=== PATIENT | female | born 1990 | race Two or more races ===

== ENCOUNTER 2016-09-23 07:52 | Inpatient (IN) | payer MEDICAID ==
[2016-04-16 15:14] VITALS: BMI 36.1
[2016-09-23] MEDS ORDERED: SODIUM CHLORIDE 0.9% 3 ML FLUSH FLUSH PRN ×2 (08:30→09:10)
[2016-09-23] MEDS ORDERED: REGULAR INSULIN 100 UNITS/ML - 3 ML VIAL SQ SCH ×2 (09:00→17:00)
[2016-09-23] MEDS ORDERED: NPH INSULIN 100 UNITS/ML PEN SQ SCH ×2 (09:00→17:00)
[2016-09-23] MEDS: REGULAR INSULIN 100 UNITS/ML - 3 ML VIAL SQ SCH (09:06)
[2016-09-23] MEDS ORDERED: Aluminum;Magnesium;Simethicone 30 ML UDC PO PRN (09:08)
[2016-09-23] MEDS ORDERED: ONDANSETRON HCL 4 MG/2 ML VIAL IV PRN (09:10)
[2016-09-23 09:12] LABS: AUTOMATED BASOPHIL 0.3 % (0-2); AUTOMATED EOSINOPHIL 0.4 % (0-5); AUTOMATED LYMPH 29.5 % (17-44); AUTOMATED MONOCYTE 6.6 % (3-10); AUTOMATED NEUTROPHIL 63.2 % (45-76); MPV 7.2 fL (7.4-10.4)
[2016-09-23 09:24] LABS: BLOOD UREA NITROGEN 9 MG/DL (7-17); CALC CORRECTED 9.4 MG/DL (8.4-10.2); CALCIUM 8.7 MG/DL (8.4-10.2); CALCULATED OSMOLALITY 268 MOs/Kg (270-290); CHLORIDE 102 mEq/L (98-107); GLUCOSE 299 MG/DL (70-99); SODIUM LEVEL 134 mEq/L (137-146); TOTAL PROTEIN 6.5 G/DL (6.3-8.2)
--- NOTE | 2016-09-23 09:57 | HISTPHYS ---
- HISTORY OF PRESENT ILLNESS Age: 26 Estimated Due Date: 02/11/17 Gestational Age: 17 : 5 Para: 3 Patient Presents to:: Labor & Delivery Presents for:: Diabetes (Poorly controlled diabetes, now admitted for patterning ) Current : Diabetes, GBS + - REVIEW OF SYSTEMS Reports/Denies: Denies: Complaints, Vaginal Bleeding, GI Comlaints Pain: Reports: None - ALLERGIES Allergies Allergy/AdvReac Type Severity Reaction Status Date / Time amoxicillin Allergy Itching Verified 04/16/16 15:15 metronidazole [From Flagyl] Allergy Difficulty Verified 04/16/16 15:15 Breathing Penicillins Allergy Hives* Verified 04/16/16 15:15 - CURRENT MEDICATIONS Home Medication List Insulin Aspart [Novolog] 5 units SQ AC 09/23/16 [History] Sertraline HCl [Zoloft] 50 mg PO DAILY 09/23/16 [History] - PAST MEDICAL HISTORY Reports: Diabetes, Depression (Bipolar) - PAST SURGICAL HISTORY Reports: Section - SOCIAL HISTORY Travel Outside of [place] in the Last 3 Months?: No Smoking Status: Never smoker Social History: Denies: Alcohol Use Marital Status: Single (Never ) - GENITOURINARY HISTORY Gynecologic History: Reports: None HX : 5 Para: 3 Live Deliveries (# of pregnancies resulting in a live ): 3 Term: 1 Pre-term: 2 Spontaneous Abortions: 1 Hx Multiple Births: No - PHYSICAL EXAM Vital Signs:: Temperature: 98.1 F (09/23/16 08:20) HR: 88 (09/23/16 08:20) RR: 20 (09/23/16 08:20) BP: 120/70 (09/23/16 08:20) Pulse Ox: () GENERAL: Alert, Oriented, No Acute Distress ABDOMEN: Gravid, Non-Distended, Non-Tender, Soft MUSCULOSKELETAL: Normal. negative: Atrophy EXTERMITIES: Moves All Extremeties. negative: Pain/Tenderness Heart Rate: 150 Moderate Variability Contractions: Absent Membranes: Intact Laboratory Last Values WBC 5.9 xk/uL (3.8-10.8) 09/23/16 09:05 RBC 3.93 xM/uL (4.20-5.40) L 09/23/16 09:05 Hgb 11.4 g/dL (12.0-16.0) L 09/23/16 09:05 Hct 33.0 % (36-47) L 09/23/16 09:05 MCV 84 fL (81-99) 09/23/16 09:05 MCH 29.0 pg (27-32) 09/23/16 09:05 MCHC 34.5 g/dl (33-36) 09/23/16 09:05 RDW 13.0 % (11.5-14.5) 09/23/16 09:05 Plt Count 196 xk/uL (130-400) 09/23/16 09:05 MPV 7.2 fL (7.4-10.4) L 09/23/16 09:05 Neut % (Auto) 63.2 % (45-76) 09/23/16 09:05 Lymph % (Auto) 29.5 % (17-44) 09/23/16 09:05 Smith % (Auto) 6.6 % (3-10) 09/23/16 09:05 Eos % (Auto) 0.4 % (0-5) 09/23/16 09:05 Baso % (Auto) 0.3 % (0-2) 09/23/16 09:05 Absolute Neuts (auto) 3.72 xk/uL (1.7-8.2) 09/23/16 09:05 Absolute Lymphs (auto) 1.71 xk/uL (0.65-4.75) 09/23/16 09:05 Sodium 134 mEq/L (137-146) L 09/23/16 09:05 Potassium 4.0 mEq/L (3.5-5.1) 09/23/16 09:05 Chloride 102 mEq/L (98-107) 09/23/16 09:05 Carbon Dioxide 23 mMOL/L (22-33) 09/23/16 09:05 Anion Gap 13 mEq/L (8-16) 09/23/16 09:05 BUN 9 MG/DL (7-17) 09/23/16 09:05 Creatinine 0.50 MG/DL (0.52-1.04) L 09/23/16 09:05 Estimated GFR (MDRD) > 60 mL/min (>=60) 09/23/16 09:05 Glucose 299 MG/DL (70-99) H 09/23/16 09:05 POC Capillary Glucose 312 MG/DL (70-99) H 09/23/16 08:12 Calculated Osmolality 268 MOs/Kg (270-290) L 09/23/16 09:05 Calcium 8.7 MG/DL (8.4-10.2) 09/23/16 09:05 Corrected Calcium 9.4 MG/DL (8.4-10.2) 09/23/16 09:05 Total Bilirubin 0.6 MG/DL (0.2-1.3) 09/23/16 09:05 AST 21 IU/L (14-36) 09/23/16 09:05 ALT 44 IU/L (9-52) 09/23/16 09:05 Alkaline Phosphatase 60 IU/L (38-126) 09/23/16 09:05 Total Protein 6.5 G/DL (6.3-8.2) 09/23/16 09:05 Albumin 3.3 G/DL (3.5-5.0) L 09/23/16 09:05 - ASSESSMENT (ACTIVE PROBLEMS) (1) Poorly controlled diabetes mellitus Acute E11.65 - TYPE 2 DIABETES MELLITUS WITH HYPERGLYCEMIA Present on Admission: Yes Comment/Plan: No evidence of DKA. Management plan discussed with Dr Gupta. - PLAN Admit, Monitor Blood Sugars, Monitor Labs
[2016-09-23] MEDS ORDERED: SODIUM CHLORIDE 0.9% 3 ML FLUSH FLUSH SCH (18:00)
[2016-09-23 18:37] LABS: RBC/URINE 0-2 (0-5); WBC/URINE 0-2 (0-5)
[2016-09-23 18:41] LABS: LEUKOCYTES/URINE NEG (NEGATIVE); URINE OCCULT BLOOD NEG (NEG/TRACE)
[2016-09-23 18:42] LABS: NITRITE/URINE NEG (NEGATIVE)
[2016-09-23] MEDS ORDERED: PNEUMOCOCCAL 0.5 ML VIAL IM ONE (19:00)
[2016-09-23] MEDS ORDERED: Vaccine Screening Complete SCH (19:00)
[2016-09-23] MEDS: SODIUM CHLORIDE 0.9% 3 ML FLUSH FLUSH SCH (19:18)
[2016-09-23] MEDS: DIPHENHYDRAMINE 25 MG CAP PO PRN (21:37)
[2016-09-23] MEDS: ACETAMINOPHEN 325 MG/TAB TABLET PO PRN (21:46)
[2016-09-24 02:55] LABS: BLOOD UREA NITROGEN 9 MG/DL (7-17); CALC CORRECTED 9.4 MG/DL (8.4-10.2); CALCIUM 8.3 MG/DL (8.4-10.2); CALCULATED OSMOLALITY 258 MOs/Kg (270-290); CHLORIDE 103 mEq/L (98-107); GLUCOSE 119 MG/DL (70-99); SODIUM LEVEL 134 mEq/L (137-146); TOTAL PROTEIN 5.7 G/DL (6.3-8.2)
[2016-09-24 03:11] LABS: AUTOMATED BASOPHIL 0.5 % (0-2); AUTOMATED EOSINOPHIL 1.2 % (0-5); AUTOMATED LYMPH 48.3 % (17-44); AUTOMATED MONOCYTE 8.8 % (3-10); AUTOMATED NEUTROPHIL 41.2 % (45-76); MPV 7.8 fL (7.4-10.4)
[2016-09-24] MEDS: SODIUM CHLORIDE 0.9% 3 ML FLUSH FLUSH SCH (05:50)
[2016-09-24] MEDS ORDERED: NPH INSULIN 100 UNITS/ML PEN SQ SCH ×2 (07:00→17:00)
--- NOTE | 2016-09-24 08:14 | OBGYNPROG ---
- Subjective Hospital Day #: 2 Reports: Movement, Headache, GI Comlaints (slight nausea). Denies: Vaginal Bleeding, Contractions, Leaking Fluid, Shortness of Breath, Blurred Vision Pain: Reports: None - Objective Vital Signs: Last Vital Signs Temp 98.3 F 09/24/16 05:47 Pulse 82 09/24/16 05:47 Resp 20 09/24/16 05:47 BP 118/65 09/24/16 05:47 Pulse Ox GENERAL: Alert, Oriented, No Acute Distress ABDOMEN: Gravid, Non-Distended, Non-Tender, Soft Monitor Mode: Doppler OBGYN Progress Note Progress Note: Laboratory Results - last 24 hr 09/23/16 09/23/16 09/23/16 08:12 09:05 09:05 WBC 5.9 RBC 3.93 L Hgb 11.4 L Hct 33.0 L MCV 84 MCH 29.0 MCHC 34.5 RDW 13.0 Plt Count 196 MPV 7.2 L Neut % (Auto) 63.2 Lymph % (Auto) 29.5 Cole % (Auto) 6.6 Eos % (Auto) 0.4 Baso % (Auto) 0.3 Absolute Neuts (auto) 3.72 Absolute Lymphs (auto) 1.71 Sodium 134 L Potassium 4.0 Chloride 102 Carbon Dioxide 23 Anion Gap 13 BUN 9 Creatinine 0.50 L Estimated GFR (MDRD) > 60 Glucose 299 H POC Capillary Glucose 312 H Calculated Osmolality 268 L Calcium 8.7 Corrected Calcium 9.4 Total Bilirubin 0.6 AST 21 ALT 44 Alkaline Phosphatase 60 Total Protein 6.5 Albumin 3.3 L Urine Color Urine Clarity Urine pH Ur Specific [place] Urine Protein Urine Glucose (UA) Urine Ketones Urine Occult Blood Urine Nitrite Urine Bilirubin Urine Urobilinogen Ur Leukocyte Esterase Urine RBC Urine WBC Ur Epithelial Cells Urine Bacteria Urine Yeast 09/23/16 09/23/16 09/23/16 11:38 15:10 21:35 WBC RBC Hgb Hct MCV MCH MCHC RDW Plt Count MPV Neut % (Auto) Lymph % (Auto) Cole % (Auto) Eos % (Auto) Baso % (Auto) Absolute Neuts (auto) Absolute Lymphs (auto) Sodium Potassium Chloride Carbon Dioxide Anion Gap BUN Creatinine Estimated GFR (MDRD) Glucose POC Capillary Glucose 253 H 186 H 207 H Calculated Osmolality Calcium Corrected Calcium Total Bilirubin AST ALT Alkaline Phosphatase Total Protein Albumin Urine Color Urine Clarity Urine pH Ur Specific [place] Urine Protein Urine Glucose (UA) Urine Ketones Urine Occult Blood Urine Nitrite Urine Bilirubin Urine Urobilinogen Ur Leukocyte Esterase Urine RBC Urine WBC Ur Epithelial Cells Urine Bacteria Urine Yeast 09/23/16 09/24/16 09/24/16 Unknown 02:05 02:05 WBC 5.5 RBC 3.74 L Hgb 10.8 L Hct 31.4 L MCV 84 MCH 28.9 MCHC 34.5 RDW 12.9 Plt Count 188 MPV 7.8 Neut % (Auto) 41.2 L Lymph % (Auto) 48.3 H Cole % (Auto) 8.8 Eos % (Auto) 1.2 Baso % (Auto) 0.5 Absolute Neuts (auto) 2.26 Absolute Lymphs (auto) 2.64 Sodium 134 L Potassium 3.4 L Chloride 103 Carbon Dioxide 22 Anion Gap 12 BUN 9 Creatinine 0.50 L Estimated GFR (MDRD) > 60 Glucose 119 H POC Capillary Glucose Calculated Osmolality 258 L Calcium 8.3 L Corrected Calcium 9.4 Total Bilirubin 0.5 AST 21 ALT 39 Alkaline Phosphatase 47 Total Protein 5.7 L Albumin 2.9 L Urine Color Yellow Urine Clarity Clear Urine pH 6.0 Ur Specific [place] 1.010 Urine Protein Neg Urine Glucose (UA) 3+ H Urine Ketones 1+ H Urine Occult Blood Neg Urine Nitrite Neg Urine Bilirubin Neg Urine Urobilinogen 0.2 Ur Leukocyte Esterase Neg Urine RBC 0-2 Urine WBC 0-2 Ur Epithelial Cells 1+ Urine Bacteria 2+ H Urine Yeast Mod H 09/24/16 09/24/16 02:58 05:49 WBC RBC Hgb Hct MCV MCH MCHC RDW Plt Count MPV Neut % (Auto) Lymph % (Auto) Cole % (Auto) Eos % (Auto) Baso % (Auto) Absolute Neuts (auto) Absolute Lymphs (auto) Sodium Potassium Chloride Carbon Dioxide Anion Gap BUN Creatinine Estimated GFR (MDRD) Glucose POC Capillary Glucose 142 H 132 H Calculated Osmolality Calcium Corrected Calcium Total Bilirubin AST ALT Alkaline Phosphatase Total Protein Albumin Urine Color Urine Clarity Urine pH Ur Specific [place] Urine Protein Urine Glucose (UA) Urine Ketones Urine Occult Blood Urine Nitrite Urine Bilirubin Urine Urobilinogen Ur Leukocyte Esterase Urine RBC Urine WBC Ur Epithelial Cells Urine Bacteria Urine Yeast - ASSESSMENT (1) 20 weeks gestation of Status: Acute Code(s): Z3A.20 - 20 WEEKS GESTATION OF (2) Poorly controlled diabetes mellitus Status: Acute Code(s): E11.65 - TYPE 2 DIABETES MELLITUS WITH HYPERGLYCEMIA - PLAN Had a long discussion with patient regarding her blood sugar control. Explained to the patient that her fasting blood sugar was improved this morning although still very high. We will monitor and see how her blood sugars do after breakfast and lunch today. If they are moderately controlled it is a possibility that she will go home this evening with instructions to follow up with blood sugar management as an outpatient. If, however, her insulin dose needs adjustment she will likely stay until tomorrow morning. The sales financial analyst spent a long time with the patient yesterday and upon questioning the patient states that the diet finally makes sense because the sales financial analyst showed her online tools to meal plan. This makes it much easier for the patient and she thinks that it is something that she could easily do at home. Transportation is an issue for this patient and I discussed the [employer] service with her. The patient states that when she has tried to use it in the past they were full and got very agitated at the mention of the the name. This patient will be re- evaluated later this afternoon.
[2016-09-24] MEDS: REGULAR INSULIN 100 UNITS/ML - 3 ML VIAL SQ SCH (08:16)
[2016-09-24] MEDS ORDERED: REGULAR INSULIN 100 UNITS/ML - 3 ML VIAL SQ SCH (15:16)
--- NOTE | 2016-09-24 15:29 | OBGYNPROG ---
Note Came into discussed todays blood sugars with patient. Her blood sugars were still very elevated. Her fasting was much improved this morning over yesterday morning however her postprandial blood sugars after breakfast and lunch were still elevated. It was explained to the patient that we do not expect her blood sugars to be normal given the severe elevated states that they were admission along with her hemoglobin A1C level, however, we need them to be much closer to the normal range prior to discharge. Based on her levels her insulin regimen will need to be adjusted. Her a.m. and p.m. NPH doses will be increase by 2 units each and her a.m. and p.m. R doses will be increased by 4 units each. She also has a [id number] calorie ADA diet ordered and this will be changed to an [id number] calorie ADA diet. Hopefully with these changes her blood sugars will be closer to the normal range and she will be ready to be discharged home tomorrow. The patient is agreeable to staying and new insulin regimens were discussed with the patient.
[2016-09-24] MEDS: ACETAMINOPHEN 325 MG/TAB TABLET PO PRN (22:55)
[2016-09-24] MEDS: DIPHENHYDRAMINE 25 MG CAP PO PRN (22:55)
[2016-09-25] MEDS: SODIUM CHLORIDE 0.9% 3 ML FLUSH FLUSH SCH ×3 (00:24→20:02)
[2016-09-25] MEDS ORDERED: NPH INSULIN 100 UNITS/ML PEN SQ SCH ×2 (07:00→17:00)
[2016-09-25] MEDS ORDERED: REGULAR INSULIN 100 UNITS/ML - 3 ML VIAL SQ SCH ×2 (07:00→17:00)
[2016-09-25] MEDS ORDERED: ONDANSETRON HCL 4 MG ODT TAB PO PRN (07:35)
--- NOTE | 2016-09-25 07:35 | OBGYNPROG ---
- Subjective Hospital Day #: 3 Reports: Movement, GI Comlaints (+nausea, no vomiting). Denies: Contractions, Shortness of Breath, Fever, Chills, Chest Pain, Cardiovascular Complaints, Respiratory Complaints Pain: Reports: None - Objective Vital Signs: Abnormal Lab Results 09/24/16 09/24/16 09/24/16 11:27 14:33 21:00 POC Capillary Glucose 240 H 172 H 224 H 09/25/16 09/25/16 02:54 05:57 POC Capillary Glucose 183 H 198 H Vital Signs - 24 hr 09/24/16 09/24/16 09/25/16 17:27 21:02 05:54 Temperature 98.3 F 98.3 F 98 F Pulse Rate 82 85 80 Respiratory 18 18 18 Rate Blood Pressure 143/76 127/70 121/71 GENERAL: Alert, Oriented, No Acute Distress CARDOVASCULAR/CHEST: Normal RESPIRATORY: Normal - CTA ABDOMEN: Gravid, Non-Tender, Soft EXTERMITIES: Moves All Extremeties Monitor Mode: Doppler (150bpm) OBGYN Progress Note - ASSESSMENT (1) 20 weeks gestation of Status: Acute Code(s): Z3A.20 - 20 WEEKS GESTATION OF (2) Poorly controlled diabetes mellitus Status: Acute Code(s): E11.65 - TYPE 2 DIABETES MELLITUS WITH HYPERGLYCEMIA - PLAN Continue Present Management, Monitor Blood Sugars (BS still quite elevated, unable to discharge home today given readings. Will monitor BS closely today with new insulin dosing that was made last evening. likely will need to adjust again today. will refrain from making large adjustments too quickly to avoid episodes and symptoms of "hypoglycemia" for her. pt agreed with staying overnight again for monitoring.), Supportive Care
[2016-09-25] MEDS ORDERED: RANITIDINE 150 MG TAB PO ONE (08:00)
[2016-09-25] MEDS: ACETAMINOPHEN 325 MG/TAB TABLET PO PRN (21:25)
[2016-09-25] MEDS: DIPHENHYDRAMINE 25 MG CAP PO PRN (21:25)
[2016-09-26] MEDS: SODIUM CHLORIDE 0.9% 3 ML FLUSH FLUSH SCH (05:49)
[2016-09-26] MEDS: NPH INSULIN 100 UNITS/ML PEN SQ SCH (08:02)
[2016-09-26] MEDS: REGULAR INSULIN 100 UNITS/ML - 3 ML VIAL SQ SCH (08:03)
--- NOTE | 2016-09-26 09:33 | OBGYNPROG ---
- Subjective Hospital Day #: 4 Reports: Movement. Denies: Complaints, Vaginal Bleeding, Contractions, Leaking Fluid Pain: Reports: None - Objective Vital Signs: Last Vital Signs Temp 98.4 F 09/26/16 05:25 Pulse 76 09/26/16 05:25 Resp 20 09/26/16 05:25 BP 100/57 L 09/26/16 05:25 Pulse Ox Laboratory Results - last 24 hr 09/25/16 09/25/16 09/25/16 12:22 16:46 21:12 POC Capillary Glucose 215 H 213 H 180 H 09/26/16 09/26/16 02:51 05:29 POC Capillary Glucose 98 120 H GENERAL: Alert, Oriented, No Acute Distress HEENT: Normal ABDOMEN: Gravid, Non-Distended, Non-Tender, Obese, Soft MUSCULOSKELETAL: Normal EXTERMITIES: Moves All Extremeties Contraction Pattern: Absent OBGYN Progress Note - ASSESSMENT (1) 20 weeks gestation of Status: Acute Code(s): Z3A.20 - 20 WEEKS GESTATION OF (2) Poorly controlled diabetes mellitus Status: Acute Code(s): E11.65 - TYPE 2 DIABETES MELLITUS WITH HYPERGLYCEMIA - PLAN Supportive Care Blood sugars are marginally improved. AM insulin was already changed to 36 NPH and 24 reg, Due to elevated fasting blood sugar will increase evening insulin to 22 NPH and 22 regular. Pt will remain overnight will possible DC in AM.
[2016-09-26] MEDS: ACETAMINOPHEN 325 MG/TAB TABLET PO PRN ×2 (16:09→22:23)
[2016-09-26] MEDS ORDERED: REGULAR INSULIN 100 UNITS/ML - 3 ML VIAL SQ SCH (17:00)
[2016-09-26] MEDS ORDERED: NPH INSULIN 100 UNITS/ML PEN SQ SCH (17:00)
[2016-09-26 22:21] VITALS: TEMP 98.1
[2016-09-26] MEDS: DIPHENHYDRAMINE 25 MG CAP PO PRN (22:23)
[2016-09-27 06:51] VITALS: BP 104/59; PULSE 75
--- NOTE | 2016-09-27 08:10 | OBGYNPROG ---
- Subjective Hospital Day #: 5 Denies: Complaints, Vaginal Bleeding, Contractions Pain: Reports: None - Objective Vital Signs: Temperature: 98.1 F (09/27/16 06:47) HR: 75 (09/27/16 06:47) RR: 16 (09/27/16 06:47) BP: 104/59 (09/27/16 06:47) Pulse Ox: () GENERAL: Alert, Oriented, No Acute Distress HEENT: Normal CARDOVASCULAR/CHEST: Normal RESPIRATORY: Normal - CTA ABDOMEN: Soft OBGYN Progress Note - PLAN Continue Present Management, Discharge
--- NOTE | 2016-09-27 08:12 | PCM.DCS92 ---
- HOSPITAL COURSE The patient was admitted to the hospital for diabetic teaching. She improved blood sugars throughout the weekend showed that she was able to testing as well as give herself insulin. Secondary to this she was discharged home with current insulin doses. /Op Complications: None - DISCHARGE INSTRUCTIONS Discharge Disposition: Home Discharge Condition: Good Cognitive Discharge Status: Unimpaired Fuctional Discharge Status: Independent Patient Leaving with Prescriptions?: Yes Home Medications/ New Prescriptions: No Action Lamotrigine [Lamictal] 25 mg PO DAILY Insulin Detemir [Levemir] 40 units SQ HS HydrOXYzine Pamoate (Anxiety) [Vistaril] 25 mg PO TID PRN PRN Reason: Anxiety Insulin Aspart [Novolog] 5 units SQ AC Sertraline HCl [Zoloft] 50 mg PO DAILY - Diet Diet at Discharge: Diabetic - Activity Activity: No Restrictions - Instructions Call Physician for: Sudden/Sever Chest Pain, Temperature Above 100.4, Vaginal Bleeding - DC Summary Notes Discharge Medications: *See "Discharge Medication List" for a complete list of Home Medications and Discharge Medications.* Obstetric Hospital Course - Admitting Diagnosis Other Reason for Visit: diabetic patterning Admission Date: 09/23/16 Gestational Age: 17
[2016-09-27] MEDS: NPH INSULIN 100 UNITS/ML PEN SQ SCH (08:27)
[2016-09-27] MEDS: REGULAR INSULIN 100 UNITS/ML - 3 ML VIAL SQ SCH (08:27)
== END 2016-09-27 11:11 | disposition home or self-care (01) | DRG 781 ==
LOC: MASU 07:52 → OBSVTOIN 07:52
PROVIDERS: ADMIT Obstetrics & Gynecology; ATTEND Obstetrics & Gynecology
DX: O24.112 Pre-existing type 2 diabetes mellitus, in pregnancy, second trimester (principal); E11.65 Type 2 diabetes mellitus with hyperglycemia; Z79.4 Long term (current) use of insulin; O99.820 Streptococcus B carrier state complicating pregnancy; Z3A.20 20 weeks gestation of pregnancy
CPT/HCPCS: 80053; 81001; 81002; 82962; 85025; 87641; 96372; J3490; S5571